=== PATIENT | female | born 1935 ===

== ENCOUNTER 2021-08-03 08:23 | Observation (INO) ==
[~2021-08-03 08:23] MED LIST: *HR* FentaNYL (PF) 100 MCG/2 ML VIAL ONE; *HR* Propofol 200 MG/20 ML VIAL IVP ONE
[2021-08-03] MEDS ORDERED: Ondansetron 4 MG/2 ML VIAL ONE (08:24)
[2021-08-03] MEDS ORDERED: Lidocaine -MPF 2% 5 ML VIAL ONE ×2 (08:24→09:33)
[2021-08-03] MEDS ORDERED: *HR* Succinylcholine 200 MG/10 ML VIAL IVP ONE ×2 (08:24→09:34)
[2021-08-03] MEDS ORDERED: Famotidine 20 MG/2 ML VIAL IVP ONE (08:46)
[2021-08-03] MEDS ORDERED: Acetaminophen IV 1,000 MG/100 ML BAG IVPB ONE (08:46)
[2021-08-03] MEDS ORDERED: CeFAZolin Syr 2,000MG/20 ML 2,000 MG/20 ML SYRINGE IVPB ONE (08:57)
[2021-08-03] MEDS ORDERED: Ringers Solution, Lactated 1,000 ML IVC SCH ×3 (09:00→15:03)
[2021-08-03] MEDS ORDERED: Albuterol 2.5 MG/3 ML NEBULIZER IH PRN ×2 (09:03→15:03)
[2021-08-03] MEDS ORDERED: *HR* FentaNYL (PF) 100 MCG/2 ML VIAL ONE (09:32)
[2021-08-03] MEDS ORDERED: *HR* Propofol 200 MG/20 ML VIAL IVP ONE (09:34)
[2021-08-03] MEDS ORDERED: *HR* Rocuronium Bromide 50 MG/5 ML VIAL ONE (09:34)
[2021-08-03] MEDS ORDERED: *HR* Phenylephrine 10 MG/ML VIAL ONE (09:38)
[2021-08-03] MEDS ORDERED: EPHEDrine 50 MG/ML VIAL ONE (09:43)
[2021-08-03] MEDS ORDERED: Vancomycin 1,000 MG VIAL ONE (09:49)
[2021-08-03] MEDS ORDERED: Albumin Human 5% 12.5 GM/250 ML IV.SOLN ONE (10:04)
[2021-08-03] MEDS ORDERED: TOTAL JOINT MIXTURE (100ML) INTRAART ONE (10:10)
[2021-08-03] MEDS ORDERED: Povidone-Iodine 45 ML, Sodium Chloride IRRigation 1,000 ML IR ONE (10:10)
[2021-08-03] MEDS ORDERED: Gentamicin 300 MG in 0.9 % Sodium Chloride 100 ML IVPB ONE (10:14)
[2021-08-03] MEDS ORDERED: *HR* Midazolam HCl 2 MG/2 ML VIAL ONE (10:20)
[2021-08-03] MEDS ORDERED: Tranexamic Acid 1,000 MG/10 ML VIAL ONE (11:16)
[2021-08-03] MEDS ORDERED: *HR* Labetalol 20 MG/4 ML SYRINGE IVP ONE (12:35)
[2021-08-03] MEDS ORDERED: *HR* HYDROMORPHONE 2 MG/ML VIAL ONE (13:14)
[2021-08-03] MEDS ORDERED: *HR* OxyCODONE Immed Rel 5 MG TABLET PO PRN (13:40)
[2021-08-03] MEDS ORDERED: Ondansetron 4 MG/2 ML VIAL IVP PRN ×2 (13:40→15:03)
[2021-08-03] MEDS ORDERED: MOM Conc 10 ML UD.LIQ PO PRN ×2 (13:40→15:03)
[2021-08-03] MEDS ORDERED: Naloxone 0.4 MG/ML INJ IVP PRN ×2 (13:40→15:03)
[2021-08-03] MEDS ORDERED: Sennosides 8.6 MG TABLET PO PRN ×2 (13:40→15:03)
[2021-08-03] MEDS ORDERED: CeFAZolin 2 GM/120 ML BAG IVPB SCH ×2 (16:00→19:00)
[2021-08-03] MEDS ORDERED: Ascorbic Acid 500 MG TABLET PO SCH (17:00)
[2021-08-03] MEDS: *HR* OxyCODONE Immed Rel 5 MG TABLET PO PRN ×2 (17:58→22:09)
[2021-08-03] MEDS: Ascorbic Acid 500 MG TABLET PO SCH (17:59)
[2021-08-03] MEDS: Budesonide/Formoterol 80/4.5 1 PUFF INH IH SCH (20:47)
[2021-08-03] MEDS ORDERED: Baclofen 10 MG TABLET PO SCH (21:00)
[2021-08-03] MEDS ORDERED: Budesonide/Formoterol 80/4.5 1 PUFF INH IH SCH (22:00)
[2021-08-03] MEDS: Baclofen 10 MG TABLET PO SCH (22:09)
[2021-08-04 03:33] LABS: Basophils % 0.4 %; Eosinophils % 0.2 %; Hematocrit 22.6 % (35.3-44.9); Hemoglobin 7.2 g/dL (11.5-15.4); Immature Granulocytes % 0.4 % (0-4); Lymphocytes # 1.6 K/mcL (0.6-4.6); Lymphocytes % 16.7 %; Mean Corpuscular HGB Conc 31.9 g/dL (31.6-35.5); Mean Corpuscular Hemoglobin 31.3 pg (28.0-33.3); Mean Corpuscular Volume 98.3 fL (83.0-100.0); Mean Platelet Volume 9.1 fL (9.4-12.4); Monocytes # 1.2 K/mcL (0.0-1.3); Monocytes % 13.2 %; Neutrophils # 6.5 K/mcL (1.6-8.9); Platelet Count 245 K/mcL (140-400); Red Cell Distribution Width 13.3 % (11.5-14.5); Segmented Neutrophils % 69.1 %; White Blood Count 9.4 K/mcL (4.3-11.1)
[2021-08-04 03:50] LABS: BUN/Creatinine Ratio 24 (6-26); Blood Urea Nitrogen 18 mg/dL (8-23); Calcium 8.4 mg/dL (8.6-10.3); Carbon Dioxide 24 mEq/L (23-29); Chloride 105 mEq/L (98-107); Glucose 114 mg/dL (70-105); Osmolality,Calculated 283 (280-300); Sodium 135 mEq/L (136-145); eGFR For African Americans > 60 (> 60); eGFR For Non-African Americans > 60 (> 60)
[2021-08-04] MEDS: Budesonide/Formoterol 80/4.5 1 PUFF INH IH SCH ×2 (08:03→23:03)
[2021-08-04] MEDS: Multivit/Ca/Min/Fe/FA 1 TAB TABLET PO SCH (08:57)
[2021-08-04] MEDS: hydroCHLOROthiazide 25 MG TABLET PO SCH (08:57)
[2021-08-04] MEDS: Ascorbic Acid 500 MG TABLET PO SCH ×2 (08:58→16:43)
[2021-08-04] MEDS ORDERED: Multivit/Ca/Min/Fe/FA 1 TAB TABLET PO SCH (09:00)
[2021-08-04] MEDS ORDERED: FLUTICASONE PROPIONATE 55 MCG IH SCH (09:00)
[2021-08-04] MEDS ORDERED: hydroCHLOROthiazide 25 MG TABLET PO SCH (09:00)
[2021-08-04] MEDS ORDERED: FLUTICASONE PROPIONATE IH SCH (09:00)
[2021-08-04] MEDS: Aspirin Enteric Coated 81 MG Tablet PO SCH ×2 (11:25→20:25)
[2021-08-04] MEDS ORDERED: CeFAZolin 2 GM/120 ML BAG IVPB SCH (12:00)
[2021-08-04] MEDS ORDERED: Aspirin Enteric Coated 81 MG Tablet PO SCH ×2 (13:48)
[2021-08-04 16:46] LABS: Hematocrit 24.3 % (35.3-44.9); Hemoglobin 7.6 g/dL (11.5-15.4)
[2021-08-04] MEDS: Baclofen 10 MG TABLET PO SCH (20:24)
[2021-08-04] MEDS: *HR* OxyCODONE Immed Rel 5 MG TABLET PO PRN (23:34)
[2021-08-05 02:59] LABS: Basophils % 0.4 %; Eosinophils # 0.1 K/mcL (0.0-0.6); Eosinophils % 0.5 %; Hematocrit 22.2 % (35.3-44.9); Hemoglobin 7.1 g/dL (11.5-15.4); Immature Granulocytes % 0.5 % (0-4); Lymphocytes # 1.5 K/mcL (0.6-4.6); Lymphocytes % 13.9 %; Mean Corpuscular Hemoglobin 30.7 pg (28.0-33.3); Mean Corpuscular Volume 96.1 fL (83.0-100.0); Mean Platelet Volume 9.2 fL (9.4-12.4); Monocytes # 1.4 K/mcL (0.0-1.3); Monocytes % 13.1 %; Neutrophils # 7.9 K/mcL (1.6-8.9); Platelet Count 246 K/mcL (140-400); Red Blood Count 2.31 M/mcL (3.82-4.97); Red Cell Distribution Width 13.6 % (11.5-14.5); Segmented Neutrophils % 71.6 %
[2021-08-05 03:19] LABS: BUN/Creatinine Ratio 20 (6-26); Blood Urea Nitrogen 15 mg/dL (8-23); Calcium 8.7 mg/dL (8.6-10.3); Carbon Dioxide 24 mEq/L (23-29); Chloride 101 mEq/L (98-107); Glucose 123 mg/dL (70-105); Osmolality,Calculated 278 (280-300); Potassium 3.6 mEq/L (3.5-5.1); Sodium 133 mEq/L (136-145); eGFR For African Americans > 60 (> 60); eGFR For Non-African Americans > 60 (> 60)
[2021-08-05] MEDS: Budesonide/Formoterol 80/4.5 1 PUFF INH IH SCH (07:50)
[2021-08-05] MEDS: Multivit/Ca/Min/Fe/FA 1 TAB TABLET PO SCH (07:55)
[2021-08-05] MEDS: Aspirin Enteric Coated 81 MG Tablet PO SCH (07:56)
[2021-08-05] MEDS: Ascorbic Acid 500 MG TABLET PO SCH (07:56)
[2021-08-05 10:39] VITALS: BP 122/73; PULSE 99; TEMP 98.9; O2SAT 97
[2021-08-05] MEDS: hydroCHLOROthiazide 25 MG TABLET PO SCH (11:06)
[2021-08-05] MEDS: *HR* OxyCODONE Immed Rel 5 MG TABLET PO PRN (11:28)
== END 2021-08-05 11:53 | disposition home health service (06) ==
LOC: 4WAOSI 08:23 → SDCAOSI 08:23 → 4WAOSI 15:03
PROVIDERS: ADMIT Orthopaedic Surgery; ATTEND Orthopaedic Surgery